=== PATIENT | female | born 1990 | race Caucasian/White ===

== ENCOUNTER 2017-02-11 04:41 | Emergency (ER) | payer OTHER ==
[~2017-02-11] VITALS: Ht 170.2 cm; Wt 70.0 kg
[2017-02-11 04:50] VITALS: Ht 170.2 cm; Wt 70.0 kg
[2017-02-11] MEDS ORDERED: SOD CHLORIDE 0.9% 1,000 ML IV STA (04:50)
[2017-02-11] MEDS ORDERED: LORAZEPAM 2 MG INJ IV ONE ×2 (05:00→05:30)
[2017-02-11 05:14] LABS: ADD SCAN DIFF NO
[2017-02-11 05:21] LABS: BASOPHILS % 0.2 % (0.0-2.0); EOSINOPHILS % 0.2 % (0.0-7.0); HEMOGLOBIN 14.6 g/dl (12.0-16.0); LYMPHOCYTES # 2.6 10^3/ul (0.8-2.9); LYMPHOCYTES % 15.9 % (15.0-51.0); MEAN CORPUSCULAR HEMOGLOBIN 30.1 pg (29.0-33.0); MEAN CORPUSCULAR HGB CONC 34.8 g/dl (32.0-37.0); MEAN CORPUSCULAR VOLUME 86.6 fl (82.0-101.0); MEAN PLATELET VOLUME 9.1 fl (7.4-10.4); MONOCYTE # 1.4 10^3/ul (0.3-0.9); MONOCYTES % 8.4 % (0.0-11.0); NEUTROPHIL # 12.1 10^3/ul (1.6-7.5); NEUTROPHILS % 74.7 % (39.0-77.0); PLATELET COUNT 373 10^3/UL (140-415); RED BLOOD COUNT 4.85 10^6/ul (4.20-5.40); RED CELL DISTRIBUTION WIDTH 12.5 % (11.5-14.5); WHITE BLOOD COUNT 16.1 10^3/ul (4.8-10.8)
[2017-02-11] MEDS ORDERED: FLUMAZENIL 0.5 MG INJ ONE (05:28)
[2017-02-11] MEDS ORDERED: NALOXONE 2 MG SYG ONE (05:28)
--- NOTE | 2017-02-11 05:28 | ERD ---
ER Documentation Chief Complaint Date/Time DATE: 02/11/17 TIME: 05:26 Chief Complaint Drug Use HPI This is a 26-year-old female comes in with complaints of drug abuse and feeling weird. She denies suicidal homicidal ideation. Denies any other current complaints. ROS All systems reviewed and are negative except as per history of present illness. PMhx/Soc Medical and Surgical Hx: pt denies Medical Hx, pt denies Surgical Hx History of Surgery: No Anesthesia Reaction: No Hx Neurological Disorder: No Hx Respiratory Disorders: No Hx Cardiac Disorders: No Hx Alcohol Use: No Hx Substance Use: Yes (meth) Hx Tobacco Use: No Smoking Status: Never smoker Physical Exam Vitals Vital Signs Date Time Temp Pulse Resp B/P Pulse Ox O2 Delivery O2 Flow Rate FiO2 02/11/17 04:50 98.1 132 30 184/132 100 Physical Exam Const: [] Head: Atraumatic Eyes: Normal Conjunctiva ENT: Normal External Ears, Nose and Mouth. Neck: Full range of motion..~ No meningismus. Resp: Clear to auscultation bilaterally Cardio: Regular rate and rhythm, no murmurs Abd: Soft, non tender, non distended. Normal bowel sounds Skin: No petechiae or rashes Back: No midline or flank tenderness Ext: No cyanosis, or edema Neur: Awake and alert Psych: Normal Mood and Affect Result Diagram: 02/11/17 0455 Results 24 hrs Laboratory Tests Test 02/11/17 04:55 White Blood Count 16.110^3/ul Red Blood Count 4.8510^6/ul Hemoglobin 14.6g/dl Hematocrit 42.0% Mean Corpuscular Volume 86.6fl Mean Corpuscular Hemoglobin 30.1pg Mean Corpuscular Hemoglobin Concent 34.8g/dl Red Cell Distribution Width 12.5% Platelet Count 64830^3/UL Mean Platelet Volume 9.1fl Neutrophils % 74.7% Lymphocytes % 15.9% Monocytes % 8.4% Eosinophils % 0.2% Basophils % 0.2% Nucleated Red Blood Cells % 0.0/100WBC Neutrophils # 12.110^3/ul Lymphocytes # 2.610^3/ul Monocytes # 1.410^3/ul Eosinophils # 0.010^3/ul Basophils # 0.010^3/ul Nucleated Red Blood Cells # 0.010^3/ul Current Medications Medications (Trade) Dose Ordered Sig/Medardo Route PRN Reason Start Time Stop Time Status Last Admin Dose Admin Sodium Chloride (NS) 1,000 ml @ 1,000 mls/hr Q1H STAT IV 02/11/17 04:50 02/11/17 05:49 02/11/17 04:56 Lorazepam (Ativan) 2 mg ONCE ONCE IV 02/11/17 05:00 02/11/17 05:01 DC 02/11/17 04:56 Lorazepam (Ativan) 2 mg ONCE ONCE IV 02/11/17 05:30 02/11/17 05:31 02/11/17 05:10 Procedures/MDM Medical decision-making: Is a 26-year-old essentially here for drug abuse. She will be allowed to sober up and is been advised to stop using drugs. Upon " road test" she will be discharged home. Departure Diagnosis: Primary Impression: Drug abuse Condition: Serious ALYSSA YAP February 11, 2017 05:28
[2017-02-11 05:32] LABS: ALBUMIN 5.3 g/dl (3.3-4.9); CHLORIDE 97 mmol/L (97-110)
[2017-02-11 05:33] LABS: SODIUM 141 mmol/L (135-144)
[2017-02-11 05:35] LABS: ALBUMIN/GLOBULIN RATIO 1.43; ANION GAP 22 (8-16); BILIRUBIN,INDIRECT 0.9 mg/dl (0-1.1); BILIRUBIN,TOTAL 0.9 mg/dl (0.2-1.3); CARBON DIOXIDE 26 mmol/L (21-31); CREATININE 1.15 mg/dl (0.44-1.00)
[2017-02-11 05:36] LABS: ALANINE AMINOTRANSFERASE 33 IU/L (13-69); ALKALINE PHOSPHATASE 123 IU/L (42-121); ASPARTATE AMINO TRANSFERASE 49 IU/L (15-46); BLOOD UREA NITROGEN 13 mg/dl (7-20); CALCIUM 9.3 mg/dl (8.4-10.2); GLUCOSE 85 mg/dl (70-220)
[2017-02-11 05:43] LABS: ACETAMINOPHEN < 10.0 ug/ml (10.0-30.0); ETHANOL < 10.0 mg/dl; SALICYLATE < 1.0 mg/dl (5.0-30.0)
[2017-02-11 06:08] LABS: ADD UMIC YES; URINE BILIRUBIN (Dip) NEGATIVE (NEGATIVE); URINE BLOOD (Dip) NEGATIVE (NEGATIVE); URINE COLOR LT. YELLOW (YELLOW); URINE GLUCOSE (Dip) NEGATIVE (NEGATIVE); URINE KETONES (Dip) 15 (NEGATIVE); URINE LEUKOCYTE ESTERASE (Dip) NEGATIVE (NEGATIVE); URINE NITRITE (Dip) NEGATIVE (NEGATIVE); URINE TOTAL PROTEIN (Dip) 1+ (NEGATIVE); URINE UROBILINOGEN (Dip) 0.2 E.U./dL (0.1-1.0)
[2017-02-11 06:09] VITALS: TEMP 99.8
[2017-02-11 07:02] LABS: URINE RBCS 0-2 /HPF (0)
[2017-02-11 07:03] LABS: BARBITURATES POSITIVE (NEGATIVE); BENZODIAZEPINES NEGATIVE (NEGATIVE); CANNABINOIDS NEGATIVE (NEGATIVE); COCAINE NEGATIVE (NEGATIVE); OPIATES POSITIVE (NEGATIVE)
[2017-02-11] MEDS ORDERED: NALOXONE (0.4 MG/ML) INJ ONE (09:03)
[2017-02-11] MEDS ORDERED: ONDANSETRON 4 MG INJ IV STA (09:09)
[2017-02-11] MEDS ORDERED: ONDANSETRON 4 MG INJ ONE (09:10)
[2017-02-11 09:13] VITALS: BP 115/71; PULSE 107; RESP 20
[2017-02-11] MEDS ORDERED: NALOXONE (0.4 MG/ML) INJ IV ONE (09:30)
--- NOTE | 2017-02-11 11:47 | RADRPT ---
PROCEDURE: CT Brain without contrast. CLINICAL INDICATION: Headaches. Neurologic deficit TECHNIQUE: A CT of the brain was performed on multidetector high-resolution CT scanner utilizing a xial sections from the skull base through the vertex without contrast. One or more of the following dose reduction techniques were used: Automated exposure control, Adjustment of the mA and/or kV acc ording to patient size, and/or use of iterative reconstruction technique. DOSE: CTDI = 31 mGy and the DLP = 451 mGy-cm. COMPARISON: None available FINDINGS: No acute intracranial hemorrhage, significant mass effect or midline shift. The guzman-white different iation is grossly preserved. The ventricles are normal in size for age. No significant opacification of the visualized paranasal sinuses or mastoids. IMPRESSION: No acute intracranial findings. RPTAT: AA .Sanjay Botello MD, Date Time Electronically viewed and signed by .Sanjay Botello MD, on 02/11/2017 11:47 .T/
== END 2017-02-11 12:58 | disposition home or self-care (01) ==
LOC: E/R 04:41
DX: F15.10 Other stimulant abuse, uncomplicated (principal); R51 Headache
CPT/HCPCS: 36415; 70450; 80053; 80306; 80307; 81001; 85025; 96374; 96375; 99285; J2060; J2310; J2405; J7030; 81003